=== PATIENT | female | born 1975 | race Caucasian/White ===

== ENCOUNTER 2016-05-19 08:47 | Day surgery (SDC) | payer BC ==
--- NOTE | 2016-05-19 07:44 | HP ---
DATE OF SURGERY: 05/19/2016 HISTORY OF PRESENT ILLNESS: The patient is a 40 year-old bleeding with bowel movements, some burning a lot at night, not sleeping. She has had some soft stools now. No prior colonoscopy. Grandmother had colon cancer at age 55. PAST MEDICAL HISTORY: She had some hypothyroidism and depression. MEDICATIONS: Include levothyroxine, Sertraline, diclofenac, cyclobenzaprine, vitamins, calcium, chondrite glucosamine, Anucort, Proctosol cream. ALLERGIES: CODEINE. PAST SURGICAL HISTORY: section as well as an EndoVenous Laser Ablation Therapy (EVLT) in the past. FAMILY HISTORY: As mentioned above colon cancer. SOCIAL HISTORY: No smoking. Reports social alcohol use, denies abuse. REVIEW OF SYSTEMS: Ten systems reviewed. No chest pains or palpitations other systems negative or noncontributory as above and per preadmission questionnaire. PHYSICAL EXAMINATION: GENERAL: No acute distress. HEENT: Sclerae nonicteric. NECK: No JVD. CHEST: Equal excursion, nonlabored breathing. CVS: Regular rate and rhythm. ABDOMEN: Soft. No peritoneal signs. EXTREMITIES: No significant edema. NEURO: Alert, moving extremities symmetrically. No gross motor deficits noted. RECTAL: She had a very slight superficial fissure, some internal and external hemorrhoids. IMPRESSION: History of rectal bleeding, family history of colon cancer. She had a superficial anal fissure treated with some diltiazem cream. I feel she would benefit from colonoscopy and possible internal hemorrhoid banding. At that the time if her fissure is significantly worsened will decide if any limited internal limited sphincterotomy is necessary but at this time colonoscopy and possible internal hemorrhoid banding. Risks and benefits explained in detail including but not limited to bleeding or infection, risk of bowel injury or perforation possibly requiring open procedure, small risk of missed or nondiagnosis or incomplete exam possibly requiring barium enema, other studies or procedures, general risk of anesthesia or sedation, risk of bowel prep, postoperative risk of nausea and vomiting or cramping but not limited to, possibility of bleeding or infection with hemorrhoid or remote risk of deeper infection possibly requiring major operation as well as the possibility even with the banding performed that she could still have progression of hemorrhoid disease possibly requiring other treatment and/or excisional therapy down the road. She also understands the possibility should anal fissure fail to improve that she might need other intervention or possible limited internal sphincterotomy which could result in aches, pains, burning, numbness possibly buttermaker helper or chronic in nature as well as possible risk of sphincter irritability, spasms, or dysfunction transient or longer term with the risk of gas or solid control issues but not limited to, or possibility of failure to improve possibly requiring other procedures or even referral to tertiary specialist. She understands and agrees to the planned procedure and will proceed with colonoscopy with possible internal hemorrhoid banding. Immediately prior to procedure will decide if her anal fissure has healed enough whether to decide if limited internal sphincterotomy is necessary or not but at this time proceed with colonoscopy for sure, possible internal hemorrhoid banding.
[~2016-05-19 08:47] MED LIST: DIPRIVAN 200 MG/20 ML IV ONE; Ketamine HCl 50 MG/ML IV ONE; Lactated Ringers 1,000 ML IV SCH
[2016-05-19 09:15] VITALS: O2SAT 100
[2016-05-19] MEDS ORDERED: Lactated Ringers 0 ML IV ONE (09:18)
[2016-05-19] MEDS ORDERED: Lactated Ringers 1,000 ML IV ONE (10:36)
[2016-05-19 12:12] VITALS: BP 107/77; PULSE 63
--- NOTE | 2016-05-20 07:40 | OP ---
SURGERY DATE/TIME: 05/19/2016 1015 PREOPERATIVE DIAGNOSES: 1) History of rectal bleeding. 2) History of internal and external hemorrhoids. 3) History of anal fissure. POSTOPERATIVE DIAGNOSES: 1) History of rectal bleeding. 2) History of internal and external hemorrhoids. 3) History of anal fissure. 4) Improved anal fissure. 5) Grade II to III internal and external hemorrhoids. PROCEDURES: 1) Colonoscopy to terminal ileum. 2) Internal hemorrhoid banding x3 columns. SURGEON: Dr. Davide Johnson. ANESTHESIA: MAC. ESTIMATED BLOOD LOSS: Minimal. INDICATIONS: As noted above. Risks and benefits explained in detail but not limited to and consent obtained. DESCRIPTION OF PROCEDURE AND FINDINGS: The patient is taken to the operating room. Again she felt she was doing better from the fissure standpoint after a high fiber diet and diltiazem for which she was treated in the past. It was felt she did not need intervention regarding the superficial anal fissure at this point. MAC anesthesia introduced. Official time out and no disagreement with planned procedure. Digital rectal exam again did not reveal any rectal masses. She did have some internal and external hemorrhoids. She had very superficial fissure that was improved from office visit. It was felt that it did not warrant any other intervention at this point. The video colonoscope inserted and passed up through the colon. The prep was somewhat poor with areas of semisolid and liquidy stool limiting the exam. The scope was slowly and carefully able to be advanced around up the transverse colon, ascending colon to the terminal ileum. Retrograde ileoscopy was able to be performed and was grossly unremarkable. On withdrawal of the scope again prep overall was poor with liquidy semisolid stool limiting exam. The scope was slowly and carefully withdrawn. There were no signs of polyps, masses or obstructing lesions. She had rare diverticula. She had internal and external hemorrhoids on retroflexion of the scope. The scope was withdrawn. Again, no obvious masses but the prep did limit the exam for potential small lesions. The scope was withdrawn. The patient tolerated the procedure well. At this point while she remained under MAC anesthesia half-kenny lubricated retractor was carefully inserted. It was felt that these hemorrhoids were definitely warranting banding as they were grade II or III and the cause of some intermittent bleeding. Therefore the suction band carefully sucking the top edge of the hemorrhoid in the left lateral position. The band was fired with good tuft of tissue in the usual fashion. The retractor is removed and then this was repeated in the right posterior with band and tuft of tissue and grasping the top edge of the internal hemorrhoid. This was again repeated in the right anterior position. Good hemostasis was noted. The patient tolerated the procedure well. There were no immediate complications. Findings discussed with the family out in the waiting area. Continue high fiber diet, Metamucil or Fibercon to titrate soft bulky bowel movements, sitz baths as needed. I will see her back in the office in a couple of weeks. She is to call sooner for any concerns.
== END 2016-05-19 12:00 | disposition home or self-care (01) ==
LOC: SDC 08:47
PROVIDERS: ATTEND Surgery
PROC: 0DJD8ZZ Inspection of Lower Intestinal Tract, Via Natural or Artificial Opening Endoscopic (ICD-10-PCS; principal; 2016-05-19)
PROC: 065Y4ZC Destruction of Hemorrhoidal Plexus, Percutaneous Endoscopic Approach (ICD-10-PCS; 2016-05-19)
DX: K62.5 Hemorrhage of anus and rectum (principal); K64.8 Other hemorrhoids; K64.4 Residual hemorrhoidal skin tags; K60.2 Anal fissure, unspecified; Z80.0 Family history of malignant neoplasm of digestive organs
CPT/HCPCS: 00810; 45398; J2704